=== PATIENT | male | born 1975 | race Caucasian/White ===

== ENCOUNTER 2016-05-03 11:43 | Emergency (ER) | payer SELFPAY ==
[~2016-05-03] VITALS: Ht 175.3 cm; Wt 90.7 kg
[2016-05-03 11:49] VITALS: BP 144/90
--- NOTE | 2016-05-03 11:49 | NUR ---
PT AMBULATED TO BED 4 AT THIS TIME.
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
--- NOTE | 2016-05-03 12:00 | NUR ---
AAO PT BEING ASSESS BY DR JOVEL AT BEDSIDE
[2016-05-03 12:12] VITALS: BP 144/90
--- NOTE | 2016-05-03 12:12 | NUR ---
Patient discharged with v/s stable. Written and verbal after care instructions given and explained. Patient verbalized understanding. Ambulatory with steady gait. All questions addressed prior to discharge. Advised to follow up with PMD.
[2016-10-25] MEDS ORDERED: COLACE PO (12:12)
== END 2016-05-03 12:12 | disposition home or self-care (01) ==
LOC: MED 11:43
DX: Z02.9 Encounter for administrative examinations, unspecified (principal); H10.9 Unspecified conjunctivitis

== ENCOUNTER 2016-06-09 21:21 | Emergency (ER) | payer SELFPAY ==
[~2016-06-09] VITALS: Ht 175.3 cm; Wt 99.8 kg
[2016-06-09 21:24] VITALS: BP 154/90
--- NOTE | 2016-06-09 23:43 | NUR ---
41Y M BIB SELF C/O RIGHT UPPER EYELID SWELLING X 3 DAYS . PT DENIES N/V/D; SKIN IS PINK/WARM/DRY; AAOX4 WITH EVEN AND STEADY GAIT; LUNGS CLEAR BL; HR EVEN AND REGULAR; PT DENIES ANY FEVER, CP, SOB, OR COUGH AT THIS TIME; PATIENT STATES PAIN OF 4/10 AT THIS TIME; VSS; PATIENT POSITIONED FOR COMFORT; HOB ELEVATED; BEDRAILS UP X2; BED DOWN. ER MD MADE AWARE OF PT STATUS.
--- NOTE | 2016-06-09 23:43 | NUR ---
PATIENT AMBULATED TO ER BED 5
--- NOTE | 2016-06-10 01:00 | NUR ---
Patient being evaluated by physician DR HI at bedside.
[2016-06-10 01:10] VITALS: BP 134/87
--- NOTE | 2016-06-10 01:10 | NUR ---
Patient discharged with v/s stable. Written and verbal after care instructions given and explained. Patient alert, oriented and verbalized understanding of instructions. Ambulatory with steady gait. All questions addressed prior to discharge. ID band removed. Patient advised to follow up with PMD. Rx of KEFLEX 500MG given. Patient educated on indication of medication including possible reaction and side effects. Opportunity to ask questions provided and answered.
[2016-10-25] MEDS ORDERED: COLACE PO (12:12)
== END 2016-06-10 01:10 | disposition home or self-care (01) ==
LOC: MED 21:21
DX: H00.011 Hordeolum externum right upper eyelid (principal); H00.031 Abscess of right upper eyelid

== ENCOUNTER 2016-09-28 13:49 | Emergency (ER) | payer SELFPAY ==
[~2016-09-28] VITALS: Ht 175.3 cm; Wt 86.2 kg
[2016-09-28 14:03] VITALS: BP 135/105
--- NOTE | 2016-09-28 14:30 | NUR ---
PATIENT PRESENTS TO ED WITH CHRONIC CONSTIPATION WITH EXACERBATION X2 WKS . PT STATES .MILD NAUSEA; SKIN IS PINK/WARM/DRY; AAOX4 WITH EVEN AND STEADY GAIT; LUNGS CLEAR BL; HR EVEN AND REGULAR; PT DENIES ANY FEVER, CP, SOB, OR COUGH AT THIS TIME; PATIENT STATES PAIN OF 6/10 AT THIS TIME; VSS; PATIENT POSITIONED FOR COMFORT; HOB ELEVATED; BEDRAILS UP X2; BED DOWN. ER MD MADE AWARE OF PT STATUS.
[2016-09-28 14:39] LABS: BASOPHILS # (AUTO) 0.3 K/uL (0.00-0.22); BASOPHILS % (AUTO) 3.9 % (0.0-2.0); EOSINOPHILS # (AUTO) 0.1 K/uL (0-0.4); EOSINOPHILS % (AUTO) 1.7 % (0.0-4.0); HEMATOCRIT 49.7 % (36-52); HEMOGLOBIN 16.4 g/dL (12.0-18.0); LYMPHOCYTES % (AUTO) 25.2 % (20.5-51.1); MEAN CORPUSCULAR HEMOGLOBIN 31 pg (27-31); MEAN CORPUSCULAR HGB CONC 33 g/dL (33-37); MEAN CORPUSCULAR VOLUME 94 fL (80-94); MONOCYTES # (AUTO) 0.7 K/uL (0.8-1.0); MONOCYTES % (AUTO) 9.2 % (1.7-9.3); PLATELET COUNT (AUTO) 209 K/uL (140-450); RED CELL DISTRIBUTION WIDTH 12.5 % (11.6-13.7); WHITE BLOOD COUNT (AUTO) 8.1 K/uL (4.8-10.8)
[2016-09-28 14:46] LABS: ANION GAP 12.9 (8-16); CALCIUM 9.3 mg/dL (8.5-10.1); CREATININE 0.9 mg/dL (0.6-1.3); POTASSIUM 3.9 mmol/L (3.5-5.1)
[2016-09-28 15:12] VITALS: BP 127/91
--- NOTE | 2016-09-28 15:13 | NUR ---
Patient discharged with v/s stable. Written and verbal after care instructions given and explained. Patient alert, oriented and verbalized understanding of instructions. Ambulatory with steady gait. All questions addressed prior to discharge. ID band removed. Patient advised to follow up with PMD. Rx of MOM,FLEET AND COLACE given. Patient educated on indication of medication including possible reaction and side effects. Opportunity to ask questions provided and answered.ENCOURAGED FLUID INTAKE AND PT AGREED WITH IT.
== END 2016-09-28 15:13 | disposition home or self-care (01) ==
LOC: MED 13:49
DX: K59.00 Constipation, unspecified (principal)
CPT/HCPCS: 36415; 74022; 80048; 85025; 99285

== ENCOUNTER 2016-10-02 06:00 | Emergency (ER) | payer SELFPAY ==
[~2016-10-02] VITALS: Ht 175.3 cm; Wt 90.7 kg
[2016-10-02 06:07] VITALS: BP 145/90
--- NOTE | 2016-10-02 06:15 | NUR ---
PT TAKEN TO BED 4
--- NOTE | 2016-10-02 06:16 | NUR ---
Es ware in [facility] - 10/02/16 at 0616 by ELIO PT TAKEN TO BED 4
--- NOTE | 2016-10-02 06:28 | NUR ---
Dr. Granados evaluating patient at bedside.
--- NOTE | 2016-10-02 06:52 | NUR ---
PT RETURN FROM XRAY
--- NOTE | 2016-10-02 07:07 | NUR ---
PT SITTING UPRIGHT IN [facility] COMPLETED. AWAITS DISPO
[2016-10-02] MEDS ORDERED: KETOROLAC 60 MG/2 ML VIAL IM ONE (07:55)
--- NOTE | 2016-10-02 08:05 | NUR ---
CT SCAN COMPLETED
[2016-10-02 08:59] VITALS: BP 140/62
--- NOTE | 2016-10-02 08:59 | NUR ---
Patient discharged with v/s stable. Written and verbal after care instructions given and explained. Patient alert, oriented and verbalized understanding of instructions. Ambulatory with steady gait. All questions addressed prior to discharge. ID band removed. Patient advised to follow up with PMD. Rx of GOLYTELY given. Patient educated on indication of medication including possible reaction and side effects. Opportunity to ask questions provided and answered.
[2016-10-25] MEDS ORDERED: COLACE PO (12:12)
== END 2016-10-02 08:59 | disposition home or self-care (01) ==
LOC: MED 06:00
DX: K59.00 Constipation, unspecified (principal)

== ENCOUNTER 2016-10-14 10:39 | Emergency (ER) | payer SELFPAY ==
[~2016-10-14] VITALS: Ht 177.8 cm; Wt 85.7 kg
[2016-10-14 10:52] VITALS: BP 120/101
--- NOTE | 2016-10-14 11:00 | NUR ---
Patient ambulated to bed 08.
[2016-10-14] MEDS ORDERED: NACL 0.9% 1,000 ML IV SCH (11:01)
--- NOTE | 2016-10-14 11:01 | NUR ---
Dr. Gallardo evaluating patient at bedside.
--- NOTE | 2016-10-14 11:10 | NUR ---
PATIENT PRESENTS TO ED WITH CONSTIPATION RECTAL DISCOMFORT . PT STATES . DENIES N/V/D; SKIN IS PINK/WARM/DRY; AAOX4 WITH EVEN AND STEADY GAIT; LUNGS CLEAR BL; HR EVEN AND REGULAR; PT DENIES ANY FEVER, CP, SOB, OR COUGH AT THIS TIME; PATIENT STATES PAIN OF 2AT THIS TIME; VSS; PATIENT POSITIONED FOR COMFORT; HOB ELEVATED; BEDRAILS UP X2; BED DOWN. ER MD MADE AWARE OF PT STATUS.
--- NOTE | 2016-10-14 11:25 | NUR ---
41/M c/o constipation x5 days. LMB 5 days ago. Pt states this is an ongoing problem. Denies N/V/D. Abdomen soft, non tender, active bowel sounds x4 quadrants. Denies s/s of UTI. AOX4, ambulatory with steady gait. VSS.
[2016-10-14 11:33] LABS: BASOPHILS # (AUTO) 0.3 K/uL (0.00-0.22); BASOPHILS % (AUTO) 4.3 % (0.0-2.0); EOSINOPHILS # (AUTO) 0.1 K/uL (0-0.4); EOSINOPHILS % (AUTO) 2.1 % (0.0-4.0); LYMPHOCYTES # (AUTO) 1.5 K/uL (2.0-11.5); LYMPHOCYTES % (AUTO) 22.1 % (20.5-51.1); MEAN CORPUSCULAR HEMOGLOBIN 31 pg (27-31); MEAN CORPUSCULAR HGB CONC 34 g/dL (33-37); MEAN CORPUSCULAR VOLUME 92 fL (80-94); MONOCYTES # (AUTO) 0.8 K/uL (0.8-1.0); MONOCYTES % (AUTO) 11.4 % (1.7-9.3); NEUTROPHILS # (AUTO) 4.2 K/uL (1.8-7.7); NEUTROPHILS % (AUTO) 60.1 % (42.2-75.2); PLATELET COUNT (AUTO) 200 K/uL (140-450); RED BLOOD CELL COUNT(AUTO) 5.09 MIL/uL (4.20-6.10); RED CELL DISTRIBUTION WIDTH 12.5 % (11.6-13.7); WHITE BLOOD COUNT (AUTO) 6.9 K/uL (4.8-10.8)
[2016-10-14 11:35] LABS: ANION GAP 16.2 (8-16); CALCIUM 9.1 mg/dL (8.5-10.1); CARBON DIOXIDE 25.4 mmol/L (21-32); CREATININE 0.9 mg/dL (0.6-1.3); POTASSIUM 3.6 mmol/L (3.5-5.1)
--- NOTE | 2016-10-14 11:35 | NUR ---
Patient taken to XRAY via wheelchair per tech.
[2016-10-14 11:41] LABS: TOTAL BILIRUBIN 0.9 mg/dL (0.0-1.0); TOTAL PROTEIN, SERUM 7.5 g/dL (6.4-8.2)
--- NOTE | 2016-10-14 11:45 | NUR ---
Patient back from XRAY via wheelchair per tech.
--- NOTE | 2016-10-14 12:15 | NUR ---
Patient appears to be resting comfortably in bed. VSS.
--- NOTE | 2016-10-14 12:42 | NUR ---
IV removed, catheter intact and site benign. Applied folded 4x4 gauze and tape to stop bleeding.
[2016-10-14 12:49] VITALS: BP 120/101
--- NOTE | 2016-10-14 12:49 | NUR ---
Patient discharged with v/s stable. Written and verbal after care instructions given and explained. Patient alert, oriented and verbalized understanding of instructions. Ambulatory with steady gait. All questions addressed prior to discharge. ID band removed. Patient advised to follow up with PMD. Rx of ENEMA given. Patient educated on indication of medication including possible reaction and side effects. Opportunity to ask questions provided and answered.
[2016-10-14 14:00] LABS: APPEARANCE,URINE CLEAR (CLEAR); BILIRUBIN,URINE 1+ (NEGATIVE); BLOOD, URINE TRACE-I (NEGATIVE); COLOR,URINE YELLOW (YELLOW); LEUKOCYTE ESTERASE ,URINE NEGATIVE (NEGATIVE); NITRITE, URINE NEGATIVE (NEGATIVE); PROTEIN,URINE NEGATIVE (NEGATIVE); UGLUCOSE NEGATIVE (NEGATIVE); UROBILINOGEN,URINE 0.2 EU/dL (0.2 - 1)
[2016-10-14 14:13] LABS: BACTERIA,URINE 1-9 (FEW) /HPF (None Seen); ICTOTEST NEGATIVE (NEGATIVE); SQUAMOUS EPITHELIAL CELL,UR 0-3 (FEW) /LPF (0-3 (FEW))
== END 2016-10-14 12:44 | disposition home or self-care (01) ==
LOC: MED 10:39
DX: K59.00 Constipation, unspecified (principal)
CPT/HCPCS: 36415; 74000; 80053; 81001; 82150; 83690; 85025; 87086; 96360; 99285; J7030

== ENCOUNTER 2016-10-25 11:26 | Emergency (ER) | payer SELFPAY ==
[~2016-10-25] VITALS: Ht 175.3 cm; Wt 81.2 kg
[2016-10-25 12:07] VITALS: BP 128/83
[2016-10-25] MEDS ORDERED: [UNRECOGNIZED DRUG - CODE] PO (12:12)
--- NOTE | 2016-10-25 12:20 | NUR ---
URINE COLLECTED IN TRIAGE.
--- NOTE | 2016-10-25 14:39 | NUR ---
Patient ambulated to bed 07.
--- NOTE | 2016-10-25 15:07 | NUR ---
41/M c/o constipation since 10/18/16 since patient was last seen here. Patient states "I have gone to the restroom since I was here." Abdomen soft, non tender, active bowel sounds x4 quadrants. Denies N/V/D. Denies fever or chills. VSS. Pt is AOX4, ambulates with steady gait.
--- NOTE | 2016-10-25 16:17 | NUR ---
Dr. Clark evaluating patient at bedside.
[2016-10-25 16:56] LABS: POTASSIUM 3.3 mmol/L (3.5-5.1)
--- NOTE | 2016-10-25 17:04 | NUR ---
Patient appears to be resting comfortably in bed. VSS.
[2016-10-25 17:06] LABS: CARBON DIOXIDE 24.3 mmol/L (21-32); CREATININE 0.7 mg/dL (0.7-1.3)
[2016-10-25] MEDS ORDERED: POTASSIUM CHLORIDE 10 MEQ TABER PO ONE (17:40)
--- NOTE | 2016-10-25 17:53 | NUR ---
Dr. Clark re-evaluating patient at bedside.
--- NOTE | 2016-10-25 18:56 | NUR ---
Pt eder home enema kit and is requesting to self administer the enema and be monitored for 30 minutes and wants to wait to have a bowel movement. I explained to the patient he has been seen by the doctor and is to be discharged home and does not need to be monitored. Pt insisiting to self administer enema. I advised patient he could do so but he did not need to be monitored and will discharged as soon as paperwork is ready. Pt verbalized understanding.
[2016-10-25 19:15] VITALS: BP 119/75
== END 2016-10-25 19:15 | disposition home or self-care (01) ==
LOC: MED 11:26
DX: K59.00 Constipation, unspecified (principal); F32.9 Major depressive disorder, single episode, unspecified
CPT/HCPCS: 36415; 80048; 99283

== ENCOUNTER 2017-04-07 07:59 | Emergency (ER) | payer MEDICAID ==
[~2017-04-07] VITALS: Ht 177.8 cm; Wt 82.6 kg
[~2017-04-07 07:59] MED LIST: [UNRECOGNIZED DRUG - CODE] PO
[2017-04-07 08:11] VITALS: BP 121/71
--- NOTE | 2017-04-07 08:21 | NUR ---
Patient to bed 11.
--- NOTE | 2017-04-07 08:21 | NUR ---
41m bib self with c/o feeling anxious and "lack of sleep x 5-6 months"; pt denies SI and HI.pt also reports consipation, last bm on 04/04/17 PT C/O FATIGUE. LUNGS CLEAR BL; HR EVEN AND REGULAR; PT DENIES ANY FEVER, CP, SOB, OR COUGH AT THIS TIME; PATIENT STATES PAIN OF 0/10 AT THIS TIME; VSS; PATIENT POSITIONED FOR COMFORT; HOB ELEVATED; BEDRAILS UP X2; BED DOWN. ER MD MADE AWARE OF PT STATUS.
--- NOTE | 2017-04-07 08:46 | NUR ---
Patient being evaluated by DR OSWALD at bedside.
[2017-04-07 08:58] VITALS: BP 111/75
--- NOTE | 2017-04-07 08:58 | NUR ---
Patient discharged with v/s stable. Written and verbal after care instructions given and explained. Patient alert, oriented and verbalized understanding of instructions. Ambulatory with steady gait. All questions addressed prior to discharge. ID band removed. Patient advised to follow up with PMD. Rx of VALIUM given. Patient educated on indication of medication including possible reaction and side effects. Opportunity to ask questions provided and answered.
== END 2017-04-07 08:58 | disposition home or self-care (01) ==
LOC: MED 07:59
DX: G47.00 Insomnia, unspecified (principal); Z79.899 Other long term (current) drug therapy
CPT/HCPCS: 99283

== ENCOUNTER 2018-11-01 08:30 | Emergency (ER) | payer MEDICAID, OTHER ==
[~2018-11-01] VITALS: Ht 175.3 cm; Wt 79.0 kg
[~2018-11-01 08:30] MED LIST changes: +MELA5SGL PO; +OLAN15TA1 PO; +ZOLP10TA1 PO; -[UNRECOGNIZED DRUG - CODE] PO
[2018-11-01 08:34] VITALS: BP 137/96
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
--- NOTE | 2018-11-01 08:58 | NUR ---
PT BEING EVALUATED BY ER AT THIS TIME.
--- NOTE | 2018-11-01 09:00 | NUR ---
GEENA REMOVED BY ISI TELLO.
--- NOTE | 2018-11-01 09:04 | NUR ---
DISCHARGED INSTRUCTIONS PROVIDED BY ER .
[2018-11-01 09:05] VITALS: BP 137/96
== END 2018-11-01 09:04 | disposition home or self-care (01) ==
LOC: MED 08:30
DX: S01.01XD Laceration without foreign body of scalp, subsequent encounter (principal); Z79.899 Other long term (current) drug therapy; Y08.89XD Assault by other specified means, subsequent encounter
CPT/HCPCS: 99281

== ENCOUNTER 2020-08-09 | Emergency (ER) | payer MEDICAID, SELFPAY ==
[~2020-08-09] VITALS: Ht 172.7 cm; Wt 106.1 kg
--- NOTE | 2020-08-09 | NUR ---
PT SHANTEL BLS. TAKEN TO BED 5
[2020-08-09 00:09] VITALS: BP 127/63
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
[2020-08-09 00:34] LABS: BASOPHILS # (AUTO) 0.1 K/uL (0.00-0.22); BASOPHILS % (AUTO) 1.1 % (0.0-2.0); EOSINOPHILS # (AUTO) 0.1 K/uL (0-0.4); EOSINOPHILS % (AUTO) 0.9 % (0.0-4.0); HEMATOCRIT 45.2 % (36-52); HEMOGLOBIN 15.4 g/dL (12.0-18.0); LYMPHOCYTES # (AUTO) 2.6 K/uL (2.0-11.5); LYMPHOCYTES % (AUTO) 34.9 % (20.5-51.1); MEAN CORPUSCULAR HEMOGLOBIN 34 pg (27-31); MEAN CORPUSCULAR HGB CONC 34 g/dL (33-37); MEAN CORPUSCULAR VOLUME 98.8 fL (80-94); MONOCYTES # (AUTO) 0.7 K/uL (0.8-1.0); MONOCYTES % (AUTO) 9.7 % (1.7-9.3); NEUTROPHILS # (AUTO) 3.9 K/uL (1.8-7.7); NEUTROPHILS % (AUTO) 53.4 % (42.2-75.2); PLATELET COUNT (AUTO) 247 K/uL (140-450); RED BLOOD CELL COUNT(AUTO) 4.57 MIL/uL (4.20-6.10); RED CELL DISTRIBUTION WIDTH 13.5 % (11.6-13.7); WHITE BLOOD COUNT (AUTO) 7.4 K/uL (4.8-10.8)
[2020-08-09 00:36] LABS: APPEARANCE,URINE CLEAR (CLEAR); BILIRUBIN,URINE NEGATIVE (NEGATIVE); BLOOD, URINE TRACE-I (NEGATIVE); COLOR,URINE YELLOW (YELLOW); LEUKOCYTE ESTERASE ,URINE TRACE (NEGATIVE); NITRITE, URINE NEGATIVE (NEGATIVE); PH,URINE 5.5 (5.0-9.0); UGLUCOSE NEGATIVE (NEGATIVE)
[2020-08-09 00:50] LABS: ALBUMIN 3.8 g/dL (3.4-5.0); ANION GAP 17.8 (8-16); ASPARTATE AMINOTRANSFERASE 25 U/L (15-37); CARBON DIOXIDE 21.7 mmol/L (21-32); CHLORIDE 108 mmol/L (98-107); GFR ARICAN-AMERICAN 103 mL/min (>90); GLUCOSE 83 mg/dL (74-106); POTASSIUM 3.5 mmol/L (3.5-5.1); SODIUM SERUM 144 mmol/L (136-145); TOTAL BILIRUBIN 0.3 mg/dL (0.0-1.0); UREA NITROGEN, BLOOD 6 mg/dL (7-18)
[2020-08-09 01:01] LABS: BARBITURATE, URINE NEGATIVE ng/ml (NEG <=200); BENZODIAZEPINE, URINE NEGATIVE ng/mL (NEG <=200); CANNABINOID, URINE POSITIVE ng/mL (NEG <=50); COCAINE, URINE NEGATIVE ng/mL (NEG <=300); OPIATE, URINE NEGATIVE ng/mL (NEG <=2000); PHENCYCLIDINE SCREEN,URINE NEGATIVE ng/mL (NEG <=25)
[2020-08-09 01:07] LABS: RBC,URINE 0-5 /HPF (0-5); WBC,URINE 0-5 /HPF (0-5)
[2020-08-09 01:12] LABS: ACETAMINOPHEN < 0.5 ug/ml (10-30)
--- NOTE | 2020-08-09 03:19 | NUR ---
TELEPSYCH INITIATED PER DR. MILLER
--- NOTE | 2020-08-09 03:46 | NUR ---
RETURN CALL FROM TELEPSYCH DOCTOR WHO SPOKE WITH PRIMARY RN Hayley STILES
--- NOTE | 2020-08-09 04:08 | NUR ---
TELEPSYCH DOCTOR SPEAKING WITH PATIENT VIA REMOTE COMMUNICATION
--- NOTE | 2020-08-09 05:03 | NUR ---
TELEPSYCH DOCTOR CALLED BACK AND SPOKE WITH PRIMARY RN Hayley STILES
--- NOTE | 2020-08-09 05:07 | NUR ---
PER DR PIERSON FROM TELE PSYCH, PATIENT IS OK TO BE DISCHARGED
[2020-08-09 06:38] VITALS: BP 118/79
--- NOTE | 2020-08-09 06:38 | NUR ---
Patient discharged with v/s stable. Written and verbal after care instructions given and explained. Patient verbalized understanding. Ambulatory with steady gait. All questions addressed prior to discharge. Advised to follow up with PMD. PT PROVIDED WITH HOMELESS RESOURCE PACKET, BUS PASS AND MEAL.
== END 2020-08-09 06:38 | disposition home or self-care (01) ==
LOC: MED
DX: F10.10 Alcohol abuse, uncomplicated (principal); R45.851 Suicidal ideations; F32.9 Major depressive disorder, single episode, unspecified; F17.290 Nicotine dependence, other tobacco product, uncomplicated; F12.90 Cannabis use, unspecified, uncomplicated; Z20.822 Contact with and (suspected) exposure to COVID-19
CPT/HCPCS: 36415; 80053; 80305; 81001; 85025; 87426; 93005; 99285; G0480; G0482; U0003; 99284